=== PATIENT | female | born 1955 | race Caucasian/White ===

== ENCOUNTER 2018-09-16 14:30 | Inpatient (IN) ==
[2018-09-16] MEDS ORDERED: Bisacodyl 10 MG Supp RECTAL PRN (16:05)
[2018-09-16] MEDS: Sod Chloride 0.9% Inj 1,000 ML IV.CONT SCH (17:44)
--- NOTE | 2018-09-16 18:08 | P.HPIM ---
History of Present Illness Service: [facility] Primary Care Physician: UNKNOWN Chief Complaint: confusion History of Present Illness: This is a pleasant 63-year-old female with past medical history significant for squamous cell carcinoma, IBS, depression, anxiety disorder, anemia fibromyalgia, chronic headaches and GERD. Patient has undergone multiple procedures and surgeries for squamous cell carcinoma to her scalp since 2015. Most recently, patient underwent wide local excision of scalp squamous cell and excision of outer table skull with right ALT free flap, right thigh skin graft and right forearm vein harvesting by Dr. Edosn Adam on 08/20/18 at [facility]. Postoperatively, patient was ventilated for 48 hours. She had significant scalp edema. Her postop course was also complicated by cerebral infarction with hemiparesis and hemiplegia affecting the left side but the patient's strength has significantly returned. Patient also underwent a PEG tube placement on 08/30 to help with nutritional intake and eats modified diet orally. Patient became obtunded and imaging revealed bilateral subdural collections, EEG showed encephalopathy. She underwent a lumbar puncture August 30 with unremarkable CSF studies. Patient was admitted to [facility] for comprehensive rehabilitation on September 09, 2018. Pt. had been progressing well throughout rehab stay. On 09/15/2018 patient sensation was noted with slight dehiscence and erythema. Call was left at the surgeon's office per CIR team. On 09/16, CIR team was able to speak to PA for surgeon and discussed changes noted to flap. Surgeon did not see need to transfer pt. back to [place] and recommended to continue with rehab. Over the last 3-4 days, pt. had complained of headaches and was started on Fioricet which had initially helped. Today, pt. was noted sleepy and Fioricet was stopped. Later in the day, Patient became more lethargic and was difficult with tachycardia and hypoxia, Blood pressure remained stable. Due to observation of changes to cranial surgical sites, suspicion was for infection and possible sepsis. Septic workup was initiated, blood cultures were collected. Lactic acid was 2.3. Chest x-ray did not reveal any acute findings. CT of the head showed stable postop features of high frontoparietal craniotomy with stable region of increased density overlying the frontal high convexity and adjacent surgical clips. No intercurrent hemorrhage or interval change. There has not been any fever, no leukocytosis. Because of above changes, the decision was made to transfer patient to the main hospital. Patient is now examined, she remains obtunded, barely arouses to touch. She is on oxygen at 2 L and sats 99%, patient is hemodynamically stable. Review of systems difficult to obtain at this time. Patient is admitted for further evaluation and treatment. - Diagnosis (1) Acute metabolic encephalopathy (2) Status post craniotomy (3) Squamous cell carcinoma (4) Hemiparesis of nondominant side (5) Dysphagia (6) GERD (gastroesophageal reflux disease) (7) Impaired mobility and activities of daily living (8) Presence of surgical incision (9) Depression Inpatient Certification: I certify that the inpatient services were ordered in accordance with Medicare regulations governing the order. This includes certification that hospital inpatient services are reasonable and necessary and in the case of services not specified as inpatient-only under 42 CFR 419.22(n), that they are appropriately provided as inpatient services in accordance to with the 2-midnight benchmark under 43 CFR 412.3(e) Estimated Total Length of Stay (Days): 3 Plans for Post Hospital Care: Not yet determined Review of Systems unobtainable due to mental status PMFSH - History History Provided By: Patient, Family Member - Medical History Medical History: Medical History (Last Reviewed 09/16/18 @ 18:08 by BRIANNE Castro) Anemia Anxiety disorder Chronic headaches Depression Fibromyalgia GERD (gastroesophageal reflux disease) Irritable bowel syndrome without diarrhea Malignant neoplasm - Surgical History Surgical History: Surgical History (Last Reviewed 09/16/18 @ 18:08 by BRIANNE Castro) H/O cystoscopy History of breast surgery History of left knee surgery History of repair of rotator cuff History of sinus surgery Hx of tonsillectomy - Family History Family History: Family History (Last Reviewed 09/16/18 @ 18:08 by BRIANNE Castro) Mother Thyroid disease Breast cancer Depression Arthritis Skin cancer Hypertension Father Depression Arthritis Skin cancer Hypertension Brother Diabetes - Social History I have reviewed the patient's Social History: Yes - Tobacco History Second Hand Smoke Exposure: No Smoking Status: Former smoker Tobacco Type: Cigarettes Smoking End Date: Quit 30 years ago -patient indicates she was a "light smoker" - Alcohol History How Often Do You Have a Drink Containing Alcohol: Never - Substance Use History Substance History: No History of Abuse - Travel History History of Recent Travel: No Medications and Allergies Active Medications: Active Medications Acetaminophen (Tylenol) 650 mg PO Q4H PRN PRN Reason: Temp > 100.4 Al Hydroxide/Mg Hydroxide (Milk Of Magnesia Liq) 30 ml PO Q12H PRN PRN Reason: Mild Constipation Bisacodyl (Dulcolax Supp) 10 mg RECTAL DAILY PRN PRN Reason: SEVERE CONSITIPATION Sodium Chloride (Ns Inj) 1,000 mls @ 75 mls/hr IV.CONT .[id number] [facility] Last Admin: 09/16/18 17:44 Dose: 75 mls/hr Lactulose (Lactulose Liq) 30 ml PO DAILY PRN PRN Reason: SEVERE CONSITIPATION Ondansetron HCl (Zofran Inj) 4 mg IV.PUSH Q6H PRN PRN Reason: NAUSEA OR VOMITING Sennosides (Senokot) 17.2 mg PO Q12H PRN PRN Reason: Moderate Constipation Sodium Chloride (Ns Flush) 2 ml IV.FLUSH BID [facility] Sodium Chloride (Ns Flush) 2 ml IV.FLUSH PRN PRN PRN Reason: FLUSH AFTER USING IV ACCESS Allergies Allergy/AdvReac Type Severity Reaction Status Date / Time chlorhexidine Allergy Intermediate Tingling Verified 09/09/18 13:05 codeine Allergy Intermediate Rash, Verified 09/09/18 13:05 Generalized Home Medications Medication Instructions Recorded Confirmed Type famotidine 20 mg FEEDING TUBE BID 09/09/18 09/09/18 History heparin (porcine) 5,000 unit SUBCUT Q8H 09/09/18 09/09/18 History ondansetron 4 mg PO Q6H PRN 09/09/18 09/09/18 History Exam Vital signs: Vital Signs 09/16/18 17:55 Temperature 98.6 F Pulse Rate 93 H Respiratory Rate 18 Blood Pressure 126/83 Pulse Oximetry 98 Narrative: GENERAL: 63-year-old well-developed well-nourished female, obtunded. Withdraws to pain. SKIN: Warm and dry. +right thigh medial incision open to air. HEAD: scalp edematous with multiple incision sites, sutures in place, +skin flaps. Small area of dehiscence noted, some erythema. No drainage EYES: Pupils are 3 mm and brisk. No scleral icterus ENT: No nasal bleeding or discharge. Mucous membranes pink and moist. NECK: Trachea midline. CARDIOVASCULAR: Regular rate and rhythm. RESPIRATORY: No accessory muscle use. Clear to auscultation. Breath sounds equal bilaterally. GASTROINTESTINAL: Abdomen soft, non-tender, nondistended. +PEG tube present. MUSCULOSKELETAL: Extremities without clubbing, cyanosis, or edema. No obvious deformities. NEUROLOGICAL: Lethargic, unable to assess. Withdraws to pain. Moves right side spontaneously. PSYCHIATRIC: Unable to asses. Caprini VTE Risk Assessment Caprini VTE Risk Assessment: Moderate/High Risk (score >= 2) Caprini Risk Assessment Model: Point Value = 1 Point Value = 2 Point Value = 3 Point Value = 5 Age 41-60 Minor surgery BMI > 25 kg/m2 Swollen legs Varicose veins or History of unexplained or recurrent spontaneous Oral contraceptives or hormone replacement Sepsis (< 1 month) Serious lung disease, including pneumonia (< 1 month) Abnormal pulmonary function Acute myocardial infarction Congestive heart failure (< 1 month) History of inflammatory bowel disease Medical patient at bed rest Age 61-74 Arthroscopic surgery Major open surgery (> 45 min) Laparoscopic surgery (> 45 min) Malignancy Confined to bed (> 72 hours) Immobilizing plaster cast Central venous access Age >= 75 History of VTE Family history of VTE Factor V Leiden Prothrombin [id number] Lupus anticoagulant Anticardiolipin antibodies Elevated serum homocysteine Heparin-induced thrombocytopenia Other congenital or acquired thrombophilia Stroke (< 1 month) Elective arthroplasty Hip, pelvis, or leg fracture Acute spinal cord injury (< 1 month) Prophylaxis Regimen: Total Risk Factor Score Risk Level Prophylaxis Regimen 0-1 Low Early ambulation 2 Moderate Order ONE of the following: *Sequential Compression Device (SCD) *Heparin 5000 units SQ BID 3-4 Higher Order ONE of the following medications: *Heparin 5000 units SQ TID *Enoxaparin/Lovenox 40 mg SQ daily (WT < 150 kg, CrCl > 30 mL/min) *Enoxaparin/Lovenox 30 mg SQ daily (WT < 150 kg, CrCl > 10-29 mL/min) *Enoxaparin/Lovenox 30 mg SQ BID (WT < 150 kg, CrCl > 30 mL/min) AND/OR *Sequential Compression Device (SCD) 5 or more Highest Order ONE of the following medications: *Heparin 5000 units SQ TID (Preferred with Epidurals) *Enoxaparin/Lovenox 40 mg SQ daily (WT < 150 kg, CrCl > 30 mL/min) *Enoxaparin/Lovenox 30 mg SQ daily (WT < 150 kg, CrCl > 10-29 mL/min) *Enoxaparin/Lovenox 30 mg SQ BID (WT < 150 kg, CrCl > 30 mL/min) AND *Sequential Compression Device (SCD) Assessment and Plan - Assessment (1) Acute metabolic encephalopathy Code(s): G93.41 - Metabolic encephalopathy Status: Acute (2) Status post craniotomy Code(s): Z98.890 - Other specified postprocedural states Status: Acute (3) Squamous cell carcinoma Code(s): C44.92 - Squamous cell carcinoma of skin, unspecified Status: Chronic (4) Hemiparesis of nondominant side Code(s): G81.90 - Hemiplegia, unspecified affecting unspecified side Status: Acute (5) Dysphagia Code(s): R13.10 - Dysphagia, unspecified Status: Acute (6) GERD (gastroesophageal reflux disease) Code(s): K21.9 - Gastro-esophageal reflux disease without esophagitis Status: Chronic (7) Impaired mobility and activities of daily living Code(s): Z74.09 - Other reduced mobility Status: Acute (8) Presence of surgical incision Code(s): Z78.9 - Other specified health status Status: Acute (9) Depression Code(s): F32.9 - Major depressive disorder, single episode, unspecified Status : Chronic - Plan 63-year-old female status post wide local excision of squamous cell carcinoma of the scalp and excision outer table skull with right ALT free flap, right thigh skin graft, right forearm vein harvest 08/20/18 with postoperative course complicated by acute encephalopathy, cerebral infarction with left-sided hemiparesis, poor nutritional intake requiring PEG tube placement and subdural collections. Initially admitted to [place] for comprehensive rehab. Had acute change in mental status and was transferred to [facility]. Acute encephalopathy, etiology unclear. Possibly infection due to recent craniotomy/excision, rule out stroke, possibly due to medications (was on Fioricet for headaches) Recent hx of CVA with left hemiparesis Had episode of encephalopathy during post op period. -Continuous cardiac telemetry Neurochecks every 4 Consult neurology for evaluation CT of the head of has been completed, and no acute findings although the postop surgical changes. We will check brain MRI -check EEG We will check B12, TSH, RPR We will check a UA/UC -at this time will hold off on starting antibiotics, no fever, no leukocytosis. Recent Scalp squamous cell carcinoma with invasion into the bone, dura and sagittal sinus s/p surgical excision and craniotomy, skin graft excision and flap repair Noted with mild wound dehiscence and erythema, surgical team at [facility] has been notified. -continue to monitor wound -Patient will need to follow-up with her oncologist as outpatient for continued treatment of her squamous cell carcinoma. Per daughter, she is to have radiation when she stabilizes. Physical deconditioning Recent fall in [facility], no acute injuries. Pt. at times impulsive -Fall precautions -PT/OT to continue Headaches, was initially put on Fioricet but was stopped today due to change in mental status -for now use Tylenol as needed for headache Dysphagia Poor nutritional intake s/p PEG placement Recent barium swallow in [facility]-continued pureed and TF at HS -continue with ST -Continue on PEG tube feedings from 6 PM to 6 AM and modified oral diet. For now NPO until awake. -Aspiration precautions Anemia, mild, suspect postoperative anemia of acute blood loss -No active bleeding noted -Continue to monitor CBC as indicated GERD, chronic -continue on Pepcid DVT prophylaxis -continue Heparin sq for DVT prophylaxis. Plan of care discussed with RN. Spoke to daughter on the phone at length, questions answered in detail. Code Status: Full code Discussed Condition With: tool and die repair Planning: Back to [facility] when stable. (5) Dysphagia Qualifiers: Dysphagia type: unspecified Qualified Code(s): R13.10 - Dysphagia, unspecified (6) GERD (gastroesophageal reflux disease) Qualifiers: Esophagitis presence: esophagitis presence not specified Qualified Code(s): K21.9 - Gastro-esophageal reflux disease without esophagitis (9) Depression Qualifiers: Depression Type: unspecified Qualified Code(s): F32.9 - Major depressive disorder, single episode, unspecified
[2018-09-16 21:12] LABS: Thyroid Stimulating Hormone 0.532 uIU/mL (0.358-3.740)
[2018-09-16] MEDS: Acetaminophen 325 MG Tablet PO PRN (22:28)
[2018-09-17 04:47] LABS: Amorphous Sediment,Urine Rare /hpf; Bacteria,Urine Rare /hpf; Bilirubin,Urine Negative (Negative); Clarity,Urine Cloudy (Clear); Color,Urine Yellow (Yellw/Straw); Glucose,Urine (UA) Negative (Negative); Leukocyte Esterase,Urine Moderate (Negative); Mucus,Urine Few /lpf (Occasional); Nitrite,Urine Positive (Negative); Specific Gravity,Urine 1.015 (1.002-1.035); Squamous Epithelial Cell,Urine 1 /hpf (0-5)
[2018-09-17 07:05] LABS: Albumin 2.9 g/dL (3.4-5.0); Anion Gap 8 meq/L (5-15); Aspartate Aminotransferase 13 U/L (15-37); Blood Urea Nitrogen 11 mg/dL (7-18); Calcium 8.9 mg/dL (8.5-10.1); Carbon Dioxide 26.4 meq/L (21.0-32.0); Chloride 105 meq/L (98-107); Glomerular Filtration Rate 82 mL/min (>89); Glucose,Random 93 mg/dL (74-106); Potassium 3.8 meq/L (3.5-5.1); Sodium 139 meq/L (136-145)
[2018-09-17 07:07] LABS: Alanine Aminotransferase 23 U/L (10-53)
[2018-09-17 07:09] LABS: Alkaline Phosphatase 70 U/L (45-117); Total Protein 6.7 g/dL (6.4-8.2)
[2018-09-17] MEDS: Sod Chloride 0.9% Inj 1,000 ML IV.CONT SCH ×2 (08:19→18:18)
[2018-09-17] MEDS: Acetaminophen 325 MG Tablet PO PRN ×3 (08:19→22:49)
--- NOTE | 2018-09-17 11:47 | P.PN ---
Subjective Interval history: Follow-up acute metabolic encephalopathy September 17, 2018-patient seen and examined, alert and oriented to self and daughter. Vitals stable. Currently n.p.o. Case discussed with daughter by the bedside. EEG report pending Physical Exam Vital signs: Vital Signs 09/16/18 17:55 09/16/18 20:00 09/16/18 22:58 Temperature 98.6 F 97.2 F L Pulse Rate 93 H 101 H Respiratory Rate 18 17 18 Blood Pressure 126/83 120/75 Pulse Oximetry 98 96 09/17/18 00:00 09/17/18 04:00 09/17/18 08:00 Temperature 97.5 F L 98.6 F 97.9 F Pulse Rate 95 H 97 H 96 H Respiratory Rate 18 16 16 Blood Pressure 119/61 116/59 L 113/67 Pulse Oximetry 96 95 98 09/17/18 08:19 Temperature Pulse Rate 92 H Respiratory Rate Blood Pressure Pulse Oximetry Intake & Output 09/16/18 09/17/18 09/17/18 18:59 06:59 18:59 Intake Total 1100 / 1100 Output Total 250 / 250 Balance 850 / 850 Weight 81.193 kg Intake: IV 1100 / 1100 NS Inj 1,000 ML @ 75 mls/hr IV. 1000 / 1000 CONT .[id number] [facility] Rx#:[id number] Rocephin Inj 1,000 MG In NS Inj 100 / 100 100 ML @ 200 mls/hr IV.SIG Q24H [facility] Rx#:[id number] Output: Urine 250 / 250 Other: # Voids 2 1 # Incontinent Voids 1 Date of Last Bowel Movement 09/16/18 09/17/18 # Bowel Movements 1 Weight On Admission 81.193 kg Narrative: GENERAL: 63-year-old well-developed well-nourished female in NAD SKIN: Warm and dry. +right thigh medial incision open to air. HEAD: scalp edematous with multiple incision sites, sutures in place, +skin flaps. Small area of dehiscence noted, some erythema. No drainage EYES: Pupils are 3 mm and brisk. No scleral icterus ENT: No nasal bleeding or discharge. Mucous membranes pink and moist. NECK: Trachea midline. CARDIOVASCULAR: Regular rate and rhythm. RESPIRATORY: No accessory muscle use. Clear to auscultation. Breath sounds equal bilaterally. GASTROINTESTINAL: Abdomen soft, non-tender, nondistended. +PEG tube present. MUSCULOSKELETAL: Extremities without clubbing, cyanosis, or edema. No obvious deformities. NEUROLOGICAL: CN II-XII intact PSYCHIATRIC: Unable to asses. Results - Labs CBC & Chem 7: 09/17/18 05:57 Laboratory Results - last 24 hr 09/16/18 09/16/18 09/17/18 19:56 19:56 04:15 Sodium Potassium Chloride Carbon Dioxide Anion Gap BUN Creatinine Estimated GFR Random Glucose Lactic Acid 2.0 Calcium Total Bilirubin AST ALT Alkaline Phosphatase Total Protein Albumin Vitamin B12 1018 H TSH 0.532 Urine Color Yellow Urine Clarity Cloudy H Urine pH 6.0 Ur Specific Allgood 1.015 Urine Protein Negative Urine Glucose (UA) Negative Urine Ketones Negative Urine Occult Blood Negative Urine Nitrate Positive H Urine Bilirubin Negative Urine Urobilinogen Less than 2 Ur Leukocyte Esterase Moderate H Urine RBC 3 Urine WBC 59 H Ur Squamous Epith Cells 1 Amorphous Sediment Rare H Urine Bacteria Rare H Urine Mucus Few H Micro UA Comment Culture indicated Ur Microscopic Review Not Reportable Urine Culture Comments Culture indicated 09/17/18 05:57 Sodium 139 Potassium 3.8 Chloride 105 Carbon Dioxide 26.4 Anion Gap 8 BUN 11 Creatinine 0.72 Estimated GFR 82 L Random Glucose 93 Lactic Acid Calcium 8.9 Total Bilirubin 0.3 AST 13 L ALT 23 Alkaline Phosphatase 70 Total Protein 6.7 D Albumin 2.9 L Vitamin B12 TSH Urine Color Urine Clarity Urine pH Ur Specific Allgood Urine Protein Urine Glucose (UA) Urine Ketones Urine Occult Blood Urine Nitrate Urine Bilirubin Urine Urobilinogen Ur Leukocyte Esterase Urine RBC Urine WBC Ur Squamous Epith Cells Amorphous Sediment Urine Bacteria Urine Mucus Micro UA Comment Ur Microscopic Review Urine Culture Comments Assessment and Plan - Assessment (1) Acute metabolic encephalopathy Code(s): G93.41 - Metabolic encephalopathy Status: Acute (2) Status post craniotomy Code(s): Z98.890 - Other specified postprocedural states Status: Acute (3) Squamous cell carcinoma Code(s): C44.92 - Squamous cell carcinoma of skin, unspecified Status: Chronic (4) Hemiparesis of nondominant side Code(s): G81.90 - Hemiplegia, unspecified affecting unspecified side Status: Acute (5) Dysphagia Code(s): R13.10 - Dysphagia, unspecified Status: Acute (6) GERD (gastroesophageal reflux disease) Code(s): K21.9 - Gastro-esophageal reflux disease without esophagitis Status: Chronic (7) Impaired mobility and activities of daily living Code(s): Z74.09 - Other reduced mobility Status: Acute (8) Presence of surgical incision Code(s): Z78.9 - Other specified health status Status: Acute (9) Depression Code(s): F32.9 - Major depressive disorder, single episode, unspecified Status : Chronic - Plan 63-year-old female with Acute metabolic encephalopathy, etiology unclear. Possibly infection due to recent craniotomy/excision, rule out stroke, possibly due to medications (was on Fioricet for headaches) ----mentation is improving Recent hx of CVA with left hemiparesis Had episode of encephalopathy during post op period. -Continuous cardiac telemetry Neurochecks every 4 Consult neurology for evaluation CT of the head of has been completed, and no acute findings although the postop surgical changes. check brain MRI -EEG report pending -Treat for UTI UTI Currently on Rocephin pending urine culture report Recent Scalp squamous cell carcinoma with invasion into the bone, dura and sagittal sinus s/p surgical excision and craniotomy, skin graft excision and flap repair Noted with mild wound dehiscence and erythema, surgical team at [place] has been notified. -continue to monitor wound -Patient will need to follow-up with her oncologist as outpatient for continued treatment of her squamous cell carcinoma. Per daughter, she is to have radiation when she stabilizes. Physical deconditioning Recent fall in [place], no acute injuries. Pt. at times impulsive -Fall precautions -PT/OT to continue Headaches, was initially put on Fioricet but was stopped 09/16/18 due to change in mental status -for now use Tylenol as needed for headache Dysphagia Poor nutritional intake s/p PEG placement Recent barium swallow in [facility]-continued pureed and TF at HS, however will check swallow eval today September 17, 2018 -continue with ST -Continue on PEG tube feedings from 6 PM to 6 AM and modified oral diet. For now NPO until swallow eval check today September 17, 2018 -Aspiration precautions Anemia, mild, suspect postoperative anemia of acute blood loss -No active bleeding noted -Continue to monitor CBC as indicated GERD, chronic -continue on Pepcid DVT prophylaxis -continue Heparin sq for DVT prophylaxis. (5) Dysphagia Qualifiers: Dysphagia type: unspecified Qualified Code(s): R13.10 - Dysphagia, unspecified (6) GERD (gastroesophageal reflux disease) Qualifiers: Esophagitis presence: esophagitis presence not specified Qualified Code(s): K21.9 - Gastro-esophageal reflux disease without esophagitis (9) Depression Qualifiers: Depression Type: unspecified Qualified Code(s): F32.9 - Major depressive disorder, single episode, unspecified
--- NOTE | 2018-09-17 12:02 | MB ---
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 She had some chemo about a year ago or so and surgery with a muscle flap 08/20/2018 at the [facility]. Had some lethargy afterwards, 2 days good, 2 days bad, and then came over to [place] about a week ago where she seemed to be doing fine until yesterday. She was lethargic and brought over here. Daughter tells me postop she has a little bit of left-sided weakness, which resolved. The daughter tells me she had a little bit of trouble possibly with language or getting her words out a little since the operation, but it seems to be improving. REVIEW OF SYSTEMS: According to the daughter, no history of hypertension; diabetes; hypercholesterolemia; [place]; CABG; cardiac arrhythmia; renal, hepatic, or pulmonary disease; thyroid disease; lupus; ulcer; cancer; seizure; stroke; Afib. She has had some headaches and since her surgery and a little bit before that some concentration problems. SOCIAL HISTORY: She is a smoker, not a drinker, lives by herself. FAMILY HISTORY: No cancer, seizure, or stroke. MEDICATIONS: She is on some Subcutaneous heparin, famotidine, Tylenol. She was on some Fioricet, which her daughter thinks maybe was causing some lethargy. Here, she is on ceftriaxone. No other medication. PHYSICAL EXAMINATION: VITAL SIGNS: Afebrile, 96, 16, 113/67. NECK: There are no carotid bruits. HEART: Regular rate and rhythm. I did not detect a murmur. NEUROLOGIC: Pupils are equal. Visual casey are full. Disc is sharp on the right. Extraocular movements were intact. She had a slight strabismus which is old. Face is symmetric with normal sensation. Tongue was midline. No drift. There is a little bit of asterixis on the left hand, but she had normal strength in upper and lower extremities bilaterally. DTRs are normal in the upper extremity, slightly hyperreflexive in the left knee jerk compared to the right. Toes downgoing bilaterally. No ankle clonus. Pinprick was intact throughout. She is awake and alert, a little slow to answer. Could name, repeat, and calculate. She knew the month, but not the year. She followed commands overall well. She remembered 3 out of 3 words at 2 minutes. SKIN: She has a healing graft on the scalp. DIAGNOSTIC DATA: Labs reveal her BMP was normal, as was a calcium, lactic acid, LFTs, and total protein. Albumin is 2.9. B12 and thyroid are normal. UA: 59 white cells, moderate leukocyte esterase, positive nitrites. Chest x-ray negative. CT scan of the brain, postop changes, no change from 09/10 film she had. Increased density over the left frontal high convexities with surgical clips, post-surgical. On review of the films, the white matter is quite prominent for somebody her age and the ventricles are bit small. I wonder if she could have some diffuse venous congestion with a sagittal sinus thrombosis. It is hard to tell if there is any high frontal lobe damage with the postop changes. No infarcts are noted. ASSESSMENT AND PLAN: She overall looks intact neurologically. A little bit of hyperreflexia and a little slight asterixis on the left side apparently and probably improving, but she had some weakness there postoperatively. She had sagittal sinus thrombosis and tumor invasion possibly into the sagittal sinus. The daughter is not entirely sure and certainly at increased risk for venous infarcts. It is unclear to me if the white matter changes are normal on her on the CT. I would like to get an MRI if possible. EEG is being performed. She did have a urinary tract infection. She seems certainly improved. I will hold off on any sedating medicines. I suspect, however, she has been doing fine for a week, probably this is more possibly the Fioricet and the urinary tract infection that was causing her mental status change. MD RAFA Kaur/jessica , 10:34 AM , 10:45 AM
--- NOTE | 2018-09-17 15:03 | P.DIET ---
Nutritional Evaluation Type of nutrition evaluation: initial Nutrition consult regarding: Tube Feeding Screening comments: Transferred from [facility] Objective - Diagnosis Possible Sepsis - Objective % IBW: 119 (IBW = 150#) Body Weight Used for Calculations: Actual (81.2 kg) Energy Needs - Lower Range (kCal/kg): 25 Energy Needs - Upper Range (kCal/kg): 30 Lower Limit kCal/kg (kCals): 2,030 Upper Limit kCal/kg (kCals): 2,436 Lower Limit Protein Factor (Grams per Kg): 1.0 Upper Limit Protein Factor (Grams per Kg): 1.5 Lower Protein Needs (Protein): 81 Upper Protein Needs (Protein): 122 Dietitian Reviewed in Medical Record: Current diet, Curent medications, Intake & Output, Labs, Medical history, Tube feeding Diet Order: NPO Assessment Assessment: Pt admitted from [facility] with possible sepsis. She was on 2 gm Na pureed diet with Glucena Shakes bid and TF of Jevity 1.5 @ 65 mls/hr frpm 6pm-6am ( 1170 kcals/ 50 gms protein) but she is now NPO and TF on hold. ST swallow eval pending. RD will follow and adjust recommendations when more info is available. Recommendations: Diet per ST TF as needed determined by diet and po intake. RD following Dietitian to Monitor: Lab values, Intake & Output, Tube feeding tolerance, Weight change, PO Intake, Diet advancement, Swallow recommendations, Medical course
--- NOTE | 2018-09-17 19:02 | MG ---
cc: Arik Harden MD EEG NUMBER: [id number] A 63-year old woman with craniotomy, squamous cell carcinoma. Recording shows a slight breach rhythm over the right central head region at 9 Hz, 60 microvolt diffuse rhythm is seen phase, phase reversing delta type waves over C4 electrode are also noted and EPOCH is 20 in the same areas the breach rhythm. Occasional diffuse delta slowing is noted. No epileptiform or seizure activity is seen. Photic stimulation is performed without significant posterior driving. IMPRESSION: Breach rhythm over the right central head region. Some diffuse slowing. No seizure activity is noted. Most of the background appeared normal. Arik Harden MD DJM/ct , 06:37 PM , 06:42 PM
[2018-09-18] MEDS: Acetaminophen 325 MG Tablet PO PRN ×4 (06:22→21:43)
--- NOTE | 2018-09-18 10:16 | P.PNIM ---
Subjective Interval history: Patient seen and examined this morning. Afebrile vital signs stable. Lying and restricted bed. Still mildly confused. Denies any pain or issues at this time. Physical Exam Vital signs: Vital Signs 09/17/18 12:00 09/17/18 16:00 09/17/18 20:00 Temperature 99.2 F 97 F L 97.9 F Pulse Rate 92 H 100 H 88 Respiratory Rate 18 20 18 Blood Pressure 125/81 129/77 97/54 L Pulse Oximetry 94 L 99 97 09/18/18 00:00 09/18/18 04:00 09/18/18 05:19 Temperature 98 F 97.2 F L Pulse Rate 86 86 87 Respiratory Rate 18 18 Blood Pressure 105/62 119/59 L Pulse Oximetry 94 L 96 Intake & Output 09/17/18 09/18/18 09/18/18 18:59 06:59 18:59 Intake Total 2000 Output Total 250 / 250 Balance 1751 / 1751 Weight 81.1 kg Intake: IV 1701 / 1701 NS Inj 1,000 ML @ 75 mls/hr IV. 1601 / 1601 CONT .[id number] [facility] Rx#:[id number] Rocephin Inj 1,000 MG In NS Inj 100 / 100 100 ML @ 200 mls/hr IV.SIG Q24H [facility] Rx#:[id number] Water Bolus Amount 300 / 300 Output: Urine 250 / 250 Other: # Voids 5 3 # Incontinent Voids 1 Date of Last Bowel Movement 09/17/18 # Bowel Movements 2 1 Narrative: GENERAL: 63-year-old well-developed well-nourished female in NAD SKIN: Warm and dry. +right thigh medial incision open to air. HEAD: scalp edematous with multiple incision sites, sutures in place, +skin flaps. Small area of dehiscence noted, some erythema. No drainage EYES: Pupils are 3 mm and brisk. No scleral icterus ENT: No nasal bleeding or discharge. Mucous membranes pink and moist. NECK: Trachea midline. CARDIOVASCULAR: Regular rate and rhythm. RESPIRATORY: No accessory muscle use. Clear to auscultation. Breath sounds equal bilaterally. GASTROINTESTINAL: Abdomen soft, non-tender, nondistended. +PEG tube present. MUSCULOSKELETAL: Extremities without clubbing, cyanosis, or edema. No obvious deformities. NEUROLOGICAL: CN II-XII intact PSYCHIATRIC: Unable to asses. Results - Labs CBC & Chem 7: 09/17/18 05:57 Laboratory Results - last 24 hr 09/16/18 09/17/18 19:56 04:15 Urine Color Yellow Urine Clarity Cloudy H Urine pH 6.0 Ur Specific Murphy 1.015 Urine Protein Negative Urine Glucose (UA) Negative Urine Ketones Negative Urine Occult Blood Negative Urine Nitrate Positive H Urine Bilirubin Negative Urine Urobilinogen Less than 2 Ur Leukocyte Esterase Moderate H Urine RBC 3 Urine WBC 59 H Ur Squamous Epith Cells 1 Amorphous Sediment Rare H Urine Bacteria Rare H Urine Mucus Few H Micro UA Comment Culture indicated Urine Culture Comments Culture indicated RPR Nonreactive Microbiology 09/17/18 04:15 Clean Catch Urine Urine Culture - Preliminary gram negative rods Assessment and Plan - Assessment (1) Acute metabolic encephalopathy Code(s): G93.41 - Metabolic encephalopathy Status: Acute (2) Status post craniotomy Code(s): Z98.890 - Other specified postprocedural states Status: Acute (3) Squamous cell carcinoma Code(s): C44.92 - Squamous cell carcinoma of skin, unspecified Status: Chronic (4) Hemiparesis of nondominant side Code(s): G81.90 - Hemiplegia, unspecified affecting unspecified side Status: Acute (5) Dysphagia Code(s): R13.10 - Dysphagia, unspecified Status: Acute (6) GERD (gastroesophageal reflux disease) Code(s): K21.9 - Gastro-esophageal reflux disease without esophagitis Status: Chronic (7) Impaired mobility and activities of daily living Code(s): Z74.09 - Other reduced mobility Status: Acute (8) Presence of surgical incision Code(s): Z78.9 - Other specified health status Status: Acute (9) Depression Code(s): F32.9 - Major depressive disorder, single episode, unspecified Status : Chronic - Plan 63-year-old female with Acute metabolic encephalopathy, etiology unclear. Possibly infection due to recent craniotomy/excision, rule out stroke, possibly due to medications (was on Fioricet for headaches) ----mentation is improving Recent hx of CVA with left hemiparesis Had episode of encephalopathy during post op period. -Continuous cardiac telemetry Neurochecks every 4 Consult neurology for evaluation CT of the head of has been completed, and no acute findings although the postop surgical changes. check brain MRI -Treat for UTI UTI Currently on Rocephin pending urine culture report Recent Scalp squamous cell carcinoma with invasion into the bone, dura and sagittal sinus s/p surgical excision and craniotomy, skin graft excision and flap repair Noted with mild wound dehiscence and erythema, surgical team at [facility] has been notified. -continue to monitor wound -Patient will need to follow-up with her oncologist as outpatient for continued treatment of her squamous cell carcinoma. Per daughter, she is to have radiation when she stabilizes. Physical deconditioning Recent fall in [facility], no acute injuries. Pt. at times impulsive -Fall precautions -PT/OT to continue Headaches, was initially put on Fioricet but was stopped 09/16/18 due to change in mental status -for now use Tylenol as needed for headache Dysphagia Poor nutritional intake s/p PEG placement Recent barium swallow in [facility]-continued pureed and TF at , however will check swallow eval today September 17, 2018 -continue with ST -Continue on PEG tube feedings from 6 PM to 6 AM and modified oral diet. For now NPO until swallow eval check today September 17, 2018 -Aspiration precautions Anemia, mild, suspect postoperative anemia of acute blood loss -No active bleeding noted -Continue to monitor CBC as indicated GERD, chronic -continue on Pepcid DVT prophylaxis -continue Heparin sq for DVT prophylaxis. Code Status: Full code Discharge Planning: Pending further workup and clearance by specialist (5) Dysphagia Qualifiers: Qualified Code(s): R13.10 - Dysphagia, unspecified (6) GERD (gastroesophageal reflux disease) Qualifiers: Qualified Code(s): K21.9 - Gastro-esophageal reflux disease without esophagitis (9) Depression Qualifiers: Qualified Code(s): F32.9 - Major depressive disorder, single episode, unspecified
--- NOTE | 2018-09-18 11:11 | P.PNNEU ---
Subjective Active Medications: Active Medications Acetaminophen (Tylenol) 650 mg PO Q4H PRN PRN Reason: Temp > 100.4/pain 1-10 Last Admin: 09/18/18 10:53 Dose: 650 mg Al Hydroxide/Mg Hydroxide (Milk Of Magnesia Liq) 30 ml PO Q12H PRN PRN Reason: Mild Constipation Bisacodyl (Dulcolax Supp) 10 mg RECTAL DAILY PRN PRN Reason: SEVERE CONSITIPATION Sodium Chloride (Ns Inj) 1,000 mls @ 75 mls/hr IV.CONT .[id number] [facility] Last Infusion: 09/18/18 10:44 Dose: Infused Ceftriaxone Sodium 1,000 mg/ (Sodium Chloride) 100 mls @ 200 mls/hr IV.SIG Q24H [facility] Last Infusion: 09/18/18 10:45 Dose: Infused Lactulose (Lactulose Liq) 30 ml PO DAILY PRN PRN Reason: SEVERE CONSITIPATION Neomycin/Polymyxin/Bacitracin (Neosporin Oint) 1 applicatio TOPICAL TID [facility] Last Admin: 09/18/18 08:59 Dose: 1 applicatio Ondansetron HCl (Zofran Inj) 4 mg IV.PUSH Q6H PRN PRN Reason: NAUSEA OR VOMITING Sennosides (Senokot) 17.2 mg PO Q12H PRN PRN Reason: Moderate Constipation Sodium Chloride (Ns Flush) 2 ml IV.FLUSH BID [facility] Last Admin: 09/18/18 08:59 Dose: Not Given Sodium Chloride (Ns Flush) 2 ml IV.FLUSH PRN PRN PRN Reason: FLUSH AFTER USING IV ACCESS Allergies/Adverse Reactions: Allergies Allergy/AdvReac Type Severity Reaction Status Date / Time chlorhexidine Allergy Intermediate Tingling Verified 09/09/18 13:05 codeine Allergy Intermediate Rash, Verified 09/09/18 13:05 Generalized Physical Exam Vital signs: Vital Signs 09/17/18 12:00 09/17/18 16:00 09/17/18 20:00 Temperature 99.2 F 97 F L 97.9 F Pulse Rate 92 H 100 H 88 Respiratory Rate 18 20 18 Blood Pressure 125/81 129/77 97/54 L Pulse Oximetry 94 L 99 97 09/18/18 00:00 09/18/18 04:00 09/18/18 05:19 Temperature 98 F 97.2 F L Pulse Rate 86 86 87 Respiratory Rate 18 18 Blood Pressure 105/62 119/59 L Pulse Oximetry 94 L 96 09/18/18 08:00 Temperature 97.8 F Pulse Rate 88 Respiratory Rate 20 Blood Pressure 112/63 Pulse Oximetry 96 Intake & Output 09/17/18 09/18/18 09/18/18 18:59 06:59 18:59 Intake Total 2000 1100 / 1100 Output Total 250 / 250 Balance 1751 / 1751 1100 / 1100 Weight 81.1 kg Intake: IV 1701 / 1701 1100 / 1100 NS Inj 1,000 ML @ 75 mls/hr IV. 1601 / 1601 1000 / 1000 CONT .[id number] [facility] Rx#:[id number] Rocephin Inj 1,000 MG In NS Inj 100 / 100 100 / 100 100 ML @ 200 mls/hr IV.SIG Q24H [facility] Rx#:[id number] Water Bolus Amount 300 / 300 Output: Urine 250 / 250 Other: # Voids 5 3 # Incontinent Voids 1 Date of Last Bowel Movement 09/17/18 # Bowel Movements 2 1 Narrative: [facility] not yr but knows month vff face sym 5/ t/o nl speech Objective Laboratory Results - last 24 hr 09/16/18 09/17/18 19:56 04:15 Urine Color Yellow Urine Clarity Cloudy H Urine pH 6.0 Ur Specific Rickman 1.015 Urine Protein Negative Urine Glucose (UA) Negative Urine Ketones Negative Urine Occult Blood Negative Urine Nitrate Positive H Urine Bilirubin Negative Urine Urobilinogen Less than 2 Ur Leukocyte Esterase Moderate H Urine RBC 3 Urine WBC 59 H Ur Squamous Epith Cells 1 Amorphous Sediment Rare H Urine Bacteria Rare H Urine Mucus Few H Micro UA Comment Culture indicated Urine Culture Comments Culture indicated RPR Nonreactive Microbiology 09/17/18 04:15 Urine Culture - Preliminary Clean Catch Urine gram negative rods Review/Management - Review/Management Plan: im[p eeg neg afeb stable exam i would like to get mri she had mri at [facility] post op so should be ok if mri/a ok could dc to rehab by me
[2018-09-18] MEDS: Sod Chloride 0.9% Inj 1,000 ML IV.CONT SCH ×2 (11:47→21:44)
[2018-09-19] MEDS: Acetaminophen 325 MG Tablet PO PRN ×3 (03:00→17:09)
[2018-09-19 07:58] LABS: Hematocrit 29.7 % (35.0-46.0); Hemoglobin 9.6 gm/dL (11.6-15.3); Mean Corpuscular HGB Conc 32.2 % (32.0-36.0); Mean Corpuscular Hemoglobin 25.4 pg (27.0-34.0); Mean Platelet Volume 7.6 fL (7.0-11.0); Platelet Count 229 th/mm3 (150-450); Red Blood Count 3.76 mil/mm3 (4.00-5.30); Red Cell Distribution Width 17.4 % (11.6-17.2); White Blood Count 5.8 th/mm3 (4.0-11.0)
[2018-09-19 08:21] LABS: Anion Gap 5 meq/L (5-15); Aspartate Aminotransferase 16 U/L (15-37); Blood Urea Nitrogen 9 mg/dL (7-18); Calcium 7.9 mg/dL (8.5-10.1); Carbon Dioxide 29.5 meq/L (21.0-32.0); Chloride 105 meq/L (98-107); Glomerular Filtration Rate Greater Than 89 mL/min (>89); Glucose,Random 114 mg/dL (74-106); Potassium 3.7 meq/L (3.5-5.1); Sodium 139 meq/L (136-145)
[2018-09-19 08:24] LABS: Alanine Aminotransferase 23 U/L (10-53); Alkaline Phosphatase 72 U/L (45-117); Total Protein 6.7 g/dL (6.4-8.2)
--- NOTE | 2018-09-19 10:03 | P.PNNEU ---
Subjective Active Medications: Active Medications Acetaminophen (Tylenol) 650 mg PO Q4H PRN PRN Reason: Temp > 100.4/pain 1-10 Last Admin: 09/19/18 08:26 Dose: 650 mg Al Hydroxide/Mg Hydroxide (Milk Of Magnesia Liq) 30 ml PO Q12H PRN PRN Reason: Mild Constipation Bisacodyl (Dulcolax Supp) 10 mg RECTAL DAILY PRN PRN Reason: SEVERE CONSITIPATION Sodium Chloride (Ns Inj) 1,000 mls @ 75 mls/hr IV.CONT .[id number] [facility] Last Admin: 09/18/18 21:44 Dose: 75 mls/hr Ceftriaxone Sodium 1,000 mg/ (Sodium Chloride) 100 mls @ 200 mls/hr IV.SIG Q24H [facility] Last Infusion: 09/18/18 10:45 Dose: Infused Lactulose (Lactulose Liq) 30 ml PO DAILY PRN PRN Reason: SEVERE CONSITIPATION Neomycin/Polymyxin/Bacitracin (Neosporin Oint) 1 applicatio TOPICAL TID [facility] Last Admin: 09/19/18 08:30 Dose: 1 applicatio Ondansetron HCl (Zofran Inj) 4 mg IV.PUSH Q6H PRN PRN Reason: NAUSEA OR VOMITING Sennosides (Senokot) 17.2 mg PO Q12H PRN PRN Reason: Moderate Constipation Sodium Chloride (Ns Flush) 2 ml IV.FLUSH BID [facility] Last Admin: 09/19/18 08:30 Dose: Not Given Sodium Chloride (Ns Flush) 2 ml IV.FLUSH PRN PRN PRN Reason: FLUSH AFTER USING IV ACCESS Allergies/Adverse Reactions: Allergies Allergy/AdvReac Type Severity Reaction Status Date / Time chlorhexidine Allergy Intermediate Tingling Verified 09/09/18 13:05 codeine Allergy Intermediate Rash, Verified 09/09/18 13:05 Generalized Physical Exam Vital signs: Vital Signs 09/18/18 12:00 09/18/18 16:00 09/18/18 20:00 Temperature 97.7 F 97.9 F 97.7 F Pulse Rate 95 H 92 H 82 Respiratory Rate 20 20 18 Blood Pressure 123/71 120/71 122/78 Pulse Oximetry 93 L 92 L 96 09/19/18 00:00 09/19/18 04:00 09/19/18 08:00 Temperature 98.1 F 97.1 F L 97.8 F Pulse Rate 84 82 87 Respiratory Rate 18 18 19 Blood Pressure 102/55 L 109/60 111/70 Pulse Oximetry 94 L 97 95 Intake & Output 09/18/18 09/19/18 09/19/18 18:59 06:59 18:59 Intake Total 1100 / 1100 1710 / 1710 Balance 1100 / 1100 1710 / 1710 Intake: IV 1100 / 1100 1000 / 1000 NS Inj 1,000 ML @ 75 mls/hr IV. 1000 / 1000 1000 / 1000 CONT .[id number] [facility] Rx#:[id number] Rocephin Inj 1,000 MG In NS Inj 100 / 100 100 ML @ 200 mls/hr IV.SIG Q24H [facility] Rx#:[id number] Oral 0 / 0 Tube Feeding 710 / 710 Other: # Voids 4 7 # Bowel Movements 0 Narrative: awake alert moving all well speech nl r ear no active blood externally looks ok? some dried blood in their Objective Laboratory Results - last 24 hr 09/19/18 09/19/18 06:41 06:41 WBC 5.8 RBC 3.76 L Hgb 9.6 L Hct 29.7 L MCV 79.0 L MCH 25.4 L MCHC 32.2 RDW 17.4 H Plt Count 229 MPV 7.6 Sodium 139 Potassium 3.7 Chloride 105 Carbon Dioxide 29.5 Anion Gap 5 BUN 9 Creatinine 0.57 Estimated GFR Greater than 89 Random Glucose 114 H Calcium 7.9 L Total Bilirubin 0.2 AST 16 ALT 23 Alkaline Phosphatase 72 Total Protein 6.7 Albumin 3.0 L Microbiology 09/17/18 04:15 Urine Culture - Preliminary Clean Catch Urine gram negative rods Review/Management - Review/Management Plan: im[p eeg neg afeb stable exam i would like to get mri she had mri at [place] post op so should be ok if mri/a ok could dc to rehab by pr 09/19/18 stable overnoc she c/o r ear ache med team plz look into ear with otoscope today mri still not done due to need hardware info from [place] acc to mri this apparently is in progress and i asked nursing to call [facility] again today
--- NOTE | 2018-09-19 11:40 | P.DS ---
DS: Providers Date of admission: 09/16/18 16:48 Primary care physician: UNKNOWN Consults: 09/16/18 17:21 Consult to Neurology Routine Consulting Provider: Arik Becerra Reason for Consultation: acute change in mental status, recent stroke Notified:: Service Spoke with:: Natalie Date Notified:: 09/16/18 Time Notified:: 17:27 Ordering Provider: ROCKY Brief History from admission: This is a pleasant 63-year-old female with past medical history significant for squamous cell carcinoma, IBS, depression, anxiety disorder, anemia fibromyalgia, chronic headaches and GERD. Patient has undergone multiple procedures and surgeries for squamous cell carcinoma to her scalp since 2016. Most recently, patient underwent wide local excision of scalp squamous cell and excision of outer table skull with right ALT free flap, right thigh skin graft and right forearm vein harvesting by Dr. Edson Adam on 08/20/18 at [facility]. Postoperatively, patient was ventilated for 48 hours. She had significant scalp edema. Her postop course was also complicated by cerebral infarction with hemiparesis and hemiplegia affecting the left side but the patient's strength has significantly returned. Patient also underwent a PEG tube placement on 08/30 to help with nutritional intake and eats modified diet orally. Patient became obtunded and imaging revealed bilateral subdural collections, EEG showed encephalopathy. She underwent a lumbar puncture August 30 with unremarkable CSF studies. Patient was admitted to [facility] for comprehensive rehabilitation on September 09, 2018. Pt. had been progressing well throughout rehab stay. On 09/15/2018 patient sensation was noted with slight dehiscence and erythema. Call was left at the surgeon's office per CIR team. On 09/16, CIR team was able to speak to PA for surgeon and discussed changes noted to flap. Surgeon did not see need to transfer pt. back to [place] and recommended to continue with rehab. Over the last 3-4 days, pt. had complained of headaches and was started on Fioricet which had initially helped. Today, pt. was noted sleepy and Fioricet was stopped. Later in the day, Patient became more lethargic and was difficult with tachycardia and hypoxia, Blood pressure remained stable. Due to observation of changes to cranial surgical sites, suspicion was for infection and possible sepsis. Septic workup was initiated, blood cultures were collected. Lactic acid was 2.3. Chest x-ray did not reveal any acute findings. CT of the head showed stable postop features of high frontoparietal craniotomy with stable region of increased density overlying the frontal high convexity and adjacent surgical clips. No intercurrent hemorrhage or interval change. There has not been any fever, no leukocytosis. Because of above changes, the decision was made to transfer patient to the main hospital. Patient is now examined, she remains obtunded, barely arouses to touch. She is on oxygen at 2 L and sats 99% , patient is hemodynamically stable. Review of systems difficult to obtain at this time. Patient is admitted for further evaluation and treatment. DS: Diagnosis Discharge Diagnosis (1) Acute metabolic encephalopathy: Status: Acute (2) Status post craniotomy: Status: Acute (3) Squamous cell carcinoma: Status: Chronic (4) Hemiparesis of nondominant side: Status: Acute (5) Dysphagia: Status: Acute (6) GERD (gastroesophageal reflux disease): Status: Chronic (7) Impaired mobility and activities of daily living: Status: Acute (8) Presence of surgical incision: Status: Acute (9) Depression: Status: Chronic DS: Summary 63-year-old female who presented 3 days ago with altered mental status that seems to be secondary to urinary tract infection. She has an extensive history of invasive squamous cell carcinoma that involved her scalp and invaded into the brain cavity but not directly affecting the brain. Surgery removed the bulk of this tumor but because neurological deficits which she is recovering from. She has a small area that remains but must regain strength prior to undergoing radiation therapy to her occipital lobe. During this hospitalization , following Rocephin dosing she returned to her baseline. Swallow eval shows tolerance of pured diet with thin liquids. Her baseline diet is soft mechanical. Both she and her daughter are interested in resuming her therapy at [facility]. From my standpoint she is cleared to go there today. UTI Patient has had 3 doses of Rocephin, will continue 3 more days for thorough treatment Right otalgia Patient complains of right ear pain, infectious causes should be covered by Rocephin Adding Debrox to cover for wax caused pain Invasive squamous cell carcinoma of scalp Status post resection of bulk of tumor of her central scalp, skin grafts placed Small residual area overlying occipital lobe, will undergo radiation once she feels more strength back DVT prophylaxis Patient had some bleeding at the site of her skin graft last night We will reduce the heparin from every 8 hours to every 12 hours Time Spent with Patient Total time spent providing and/or coordinating discharge services: Quality: VTE Deep Vein Thrombosis/Pulmonary Embolism Present on Admission: No Results Labs on day of discharge: Labs from last 24 hours 09/19/18 09/19/18 06:41 06:41 WBC 5.8 RBC 3.76 L Hgb 9.6 L Hct 29.7 L MCV 79.0 L MCH 25.4 L MCHC 32.2 RDW 17.4 H Plt Count 229 MPV 7.6 Sodium 139 Potassium 3.7 Chloride 105 Carbon Dioxide 29.5 Anion Gap 5 BUN 9 Creatinine 0.57 Estimated GFR Greater than 89 Random Glucose 114 H Calcium 7.9 L Total Bilirubin 0.2 AST 16 ALT 23 Alkaline Phosphatase 72 Total Protein 6.7 Albumin 3.0 L Discharge Plan Discharge Disposition Patient Disposition: 62 Rehab Inpatient Discharge Condition Condition: Stable Discharge Order Discharge Orders: Discharge Order (Routine); Ordered 09/19/18 Ordered By: Osmin Baig Discharge Details Anticipated Discharge Date: 09/19/18 Discharge Comment: Discharge to [facility] when bed available Physicians Team Primary Care Provider: MONTEZ, Attending Provider: Osmin Baig Other Providers: Arik Becerra Rxs /Orders / Referrals /Forms Prescriptions: New ceftriaxone 1 gram recon soln 1 g IV.SIG Q24H 3 Days Qty: 3 RF: 0 Continue famotidine 20 mg Tablet 20 mg Feeding Tube BID RF: 0 ondansetron 4 mg Tablet,Disintegrating 4 mg PO Q6H PRN (Reason: Nausea And Vomiting) RF: 0 acetaminophen 325 mg Tablet 650 mg PO Q4H PRN (Reason: Pain 1-10) Qty: 0 RF: 0 [id number] [Triple Antibiotic] 3.5mg-400 unit- 5,000 unit/ gram Ointment 1 applicatio Topical BID Qty: 0 RF: 0 magnesium hydroxide [Milk of Magnesia] 400 mg/5 mL Suspension 30 ml PO DAILY PRN (Reason: Mild Constipation) Qty: 0 RF: 0 water for injection, sterile Parenteral Solution 150 ml G-Tube Q6HR Qty: 0 RF: 0 No Action senna leaf extract [senna] 176 mg/5 mL Syrup 8.8 mg G-Tube DAILY Qty: 0 RF: 0 Referrals: UNKNOWN, [Primary Care Provider] - See Instructions Discharge Interventions Interventions: Discharge Planning - Case Management Last Done: 09/17/18 14:25
[2018-09-19] MEDS: Carbamide Peroxide 6.5% Otic Drops 15 ML Bottle RIGHT EAR SCH ×2 (15:31→20:07)
[2018-09-19] MEDS: Sod Chloride 0.9% Inj 1,000 ML IV.CONT SCH (15:31)
[2018-09-20] MEDS: Sod Chloride 0.9% Inj 1,000 ML IV.CONT SCH ×2 (00:27→17:36)
[2018-09-20] MEDS: Acetaminophen 325 MG Tablet PO PRN ×5 (00:45→17:35)
[2018-09-20] MEDS: Carbamide Peroxide 6.5% Otic Drops 15 ML Bottle RIGHT EAR SCH ×2 (08:17→22:27)
--- NOTE | 2018-09-20 10:45 | P.DIET ---
Nutritional Evaluation Type of nutrition evaluation: follow-up Nutrition consult regarding: Tube Feeding Screening comments: Transferred from [facility] Subjective Subjective Comments: Ate 75% of breakfast this am Objective - Diagnosis Possible Sepsis - Objective % IBW: 119 (IBW = 150#) Body Weight Used for Calculations: Actual (81.2 kg) Energy Needs - Lower Range (kCal/kg): 25 Energy Needs - Upper Range (kCal/kg): 30 Lower Limit kCal/kg (kCals): 2,030 Upper Limit kCal/kg (kCals): 2,436 Lower Limit Protein Factor (Grams per Kg): 1.0 Upper Limit Protein Factor (Grams per Kg): 1.5 Lower Protein Needs (Protein): 81 Upper Protein Needs (Protein): 122 Dietitian Reviewed in Medical Record: Current diet, Curent medications, Intake & Output, Labs, Medical history, Tube feeding Diet Order: Pureed Speech Therapy Recommendations: Yes (pureed 09/18) Assessment Assessment: Pt admitted from [facility] with possible sepsis. She was on 2 gm Na pureed diet with Glucerna Shakes bid and TF of Jevity 1.5 @ 65 mls/hr from 6pm-6am ( 1170 kcals/ 50 gms protein) and this is now what the pt is receiving here without the sodium restriction. Pt to be d/c'ed back to [facility] possibly as soon as today. RD will follow. Recommendations: Diet per ST Night TFing as ordered. RD following Dietitian to Monitor: Lab values, Intake & Output, Tube feeding tolerance, Weight change, PO Intake, Diet advancement, Swallow recommendations, Medical course
--- NOTE | 2018-09-20 12:37 | P.PNIM ---
Subjective Interval history: 62-year-old female discharged yesterday, remains here awaiting bed at [facility]. Her otalgia was addressed yesterday, Debrox given, ear pain is now resolved. Physical Exam Vital signs: Last Vital Signs Temp 98.2 F 09/20/18 08:00 Pulse 85 09/20/18 08:00 Resp 19 09/20/18 08:00 BP 113/62 09/20/18 08:00 Pulse Ox 97 09/20/18 08:00 Intake & Output 09/18/18 09/19/18 09/20/18 09/21/18 06:59 06:59 06:59 06:59 Intake Total 3057 / 3057 2810 / 2810 2780 / 2780 100 / 100 Output Total 250 / 250 Balance 2807 / 2807 2810 / 2810 2780 / 2780 100 / 100 Weight 81.1 kg Narrative: GENERAL: AAOx3, no acute distress SKIN: Warm and dry. Large 2 part skin graft over the central scalp HEAD: Atruamtic, normocephalic. EYES: No scleral icterus. No injection or drainage. ENT: Moist mucous membranes, patent nares, no erythema of oropharynx. NECK: Supple, trachea midline. No JVD or lymphadenopathy. Normal thyroid. CARDIOVASCULAR: Regular rate and rhythm. No murmurs, gallops, or rubs. RESPIRATORY: Breath sounds clear equal bilaterally. No crackles or wheezes. No accessory muscle use. GASTROINTESTINAL: Abdomen soft, non-tender, nondistended, normal active bowel sounds MUSCULOSKELETAL: No cyanosis, or edema. NEURO: CN II-XII grossly intact, generalized weakness, imbalance, no slurring of speech Results Labs CBC & Chem 7: 09/19/18 06:41 09/19/18 06:41 Labs: Microbiology 09/17/18 04:15 Clean Catch Urine Urine Culture - Final Escherichia coli Assessment and Plan (1) Acute metabolic encephalopathy: Code(s): G93.41 - Metabolic encephalopathy Status: Acute (2) Status post craniotomy: Code(s): Z98.890 - Other specified postprocedural states Status: Acute (3) Squamous cell carcinoma: Code(s): C44.92 - Squamous cell carcinoma of skin, unspecified Status: Chronic (4) Hemiparesis of nondominant side: Code(s): G81.90 - Hemiplegia, unspecified affecting unspecified side Status: Acute (5) Dysphagia: Code(s): R13.10 - Dysphagia, unspecified Status: Acute (6) GERD (gastroesophageal reflux disease): Code(s): K21.9 - Gastro-esophageal reflux disease without esophagitis Status: Chronic (7) Impaired mobility and activities of daily living: Code(s): Z74.09 - Other reduced mobility Status: Acute (8) Presence of surgical incision: Code(s): Z78.9 - Other specified health status Status: Acute (9) Depression: Code(s): F32.9 - Major depressive disorder, single episode, unspecified Status: Chronic Plan Altered mental status Resolved following treatment for UTI Invasive squamous cell carcinoma s/p craniotomy Bulk of squamous cell carcinoma removed by Dr. vogt, small area remains of the right occipital lobe Surgery was else. She has follow-up with the surgeons Generalized weakness Patient is deconditioning following surgery for cancer She was admitted to [facility] and was performing well but became confused due to UTI UTI was treated and now she is returned to baseline Otalgia Resolved following duplex Patient appears injected on edge but no evidence of central infection Disposition Okay to discharge Progress Note: Quality VTE Deep Vein Thrombosis/Pulmonary Embolism Present on Admission: No _ (1) Dysphagia Qualifiers: Dysphagia type: unspecified Qualified Code(s): R13.10 - Dysphagia, unspecified (2) GERD (gastroesophageal reflux disease) Qualifiers: Esophagitis presence: esophagitis presence not specified Qualified Code(s): K21.9 - Gastro-esophageal reflux disease without esophagitis (3) Depression Qualifiers: Depression Type: unspecified Major depression recurrence: Active/Remission status: Major depression episode severity: Psychotic features: Trimester: Qualified Code(s): F32.9 - Major depressive disorder, single episode, unspecified
[2018-09-21] MEDS: Acetaminophen 325 MG Tablet PO PRN ×6 (00:04→23:02)
[2018-09-21] MEDS: Sod Chloride 0.9% Inj 1,000 ML IV.CONT SCH ×2 (05:33→15:17)
--- NOTE | 2018-09-21 07:58 | P.PNNEU ---
Subjective Active Medications: Active Medications Acetaminophen (Tylenol) 650 mg PO Q4H PRN PRN Reason: Temp > 100.4/pain 1-10 Last Admin: 09/21/18 05:39 Dose: 650 mg Al Hydroxide/Mg Hydroxide (Milk Of Magnesia Liq) 30 ml PO Q12H PRN PRN Reason: Mild Constipation Bisacodyl (Dulcolax Supp) 10 mg RECTAL DAILY PRN PRN Reason: SEVERE CONSITIPATION Carbamide Peroxide (Debrox 6.5% Otic Drops) 5 drops RIGHT EAR Q12HR [facility] Last Admin: 09/20/18 22:27 Dose: 5 drops Sodium Chloride (Ns Inj) 1,000 mls @ 75 mls/hr IV.CONT .[id number] [facility] Last Infusion: 09/21/18 07:00 Dose: Infused Ceftriaxone Sodium 1,000 mg/ (Sodium Chloride) 100 mls @ 200 mls/hr IV.SIG Q24H [facility] Last Infusion: 09/20/18 09:04 Dose: Infused Lactulose (Lactulose Liq) 30 ml PO DAILY PRN PRN Reason: SEVERE CONSITIPATION Neomycin/Polymyxin/Bacitracin (Neosporin Oint) 1 applicatio TOPICAL TID [facility] Last Admin: 09/20/18 17:36 Dose: 1 applicatio Ondansetron HCl (Zofran Inj) 4 mg IV.PUSH Q6H PRN PRN Reason: NAUSEA OR VOMITING Sennosides (Senokot) 17.2 mg PO Q12H PRN PRN Reason: Moderate Constipation Sodium Chloride (Ns Flush) 2 ml IV.FLUSH BID [facility] Last Admin: 09/20/18 22:28 Dose: Not Given Sodium Chloride (Ns Flush) 2 ml IV.FLUSH PRN PRN PRN Reason: FLUSH AFTER USING IV ACCESS Allergies/Adverse Reactions: Allergies Allergy/AdvReac Type Severity Reaction Status Date / Time chlorhexidine Allergy Intermediate Tingling Verified 09/09/18 13:05 codeine Allergy Intermediate Rash, Verified 09/09/18 13:05 Generalized Physical Exam Vital signs: Vital Signs 09/20/18 08:00 09/20/18 12:00 09/20/18 16:00 Temperature 98.2 F 98.2 F 98.3 F Pulse Rate 85 91 H 96 H Respiratory Rate 19 20 20 Blood Pressure 113/62 127/80 127/66 Pulse Oximetry 97 95 98 09/20/18 20:00 09/20/18 23:58 09/21/18 00:00 Temperature 97.5 F L 97.5 F L Pulse Rate 92 H 89 87 Respiratory Rate 17 18 Blood Pressure 128/67 124/76 Pulse Oximetry 96 97 09/21/18 04:00 Temperature 97.8 F Pulse Rate 85 Respiratory Rate 19 Blood Pressure 114/68 Pulse Oximetry 98 Intake & Output 09/20/18 09/21/18 09/21/18 18:59 06:59 18:59 Intake Total 1736 / 1736 600 / 600 864 / 864 Balance 1736 / 1736 600 / 600 864 / 864 Weight 81.1 kg Intake: IV 1236 / 1236 864 / 864 NS Inj 1,000 ML @ 75 mls/hr IV. 1136 / 1136 864 / 864 CONT .[id number] [facility] Rx#:[id number] Rocephin Inj 1,000 MG In NS Inj 100 / 100 100 ML @ 200 mls/hr IV.SIG Q24H [facility] Rx#:[id number] Oral 500 / 500 600 / 600 Other: # Voids 4 4 # Bowel Movements 1 Narrative: awake alert moves all well [facility] Review/Management - Review/Management Plan: im[p eeg neg afeb stable exam i would like to get mri she had mri at [facility] post op so should be ok if mri/a ok could dc to rehab by [place] 09/19/18 stable overnoc she c/o r ear ache med team plz look into ear with otoscope today mri still not done due to need hardware info from [facility] acc to mri this apparently is in progress and i asked nursing to call [facility] again today 09/21/18 mri still not done really stable neuro [place] at this point ok to transfer to rehab by me no more lethargy i will sign off call me if mri gets done
[2018-09-21] MEDS: Carbamide Peroxide 6.5% Otic Drops 15 ML Bottle RIGHT EAR SCH ×2 (09:13→22:32)
--- NOTE | 2018-09-21 14:11 | P.PNIM ---
Subjective Interval history: Patient is scheduled to transfer to [facility] today. Family requested 2 more home medications to be added to her med list, other than that patient has no new complaints and is optimistic about her recovery at [facility]. Physical Exam Vital signs: Last Vital Signs Temp 97.5 F L 09/21/18 12:00 Pulse 97 H 09/21/18 12:00 Resp 19 09/21/18 12:00 BP 121/70 09/21/18 12:00 Pulse Ox 98 09/21/18 12:00 Intake & Output 09/19/18 09/20/18 09/21/18 09/22/18 06:59 06:59 06:59 06:59 Intake Total 2810 / 2810 2780 / 2780 2336 / 2336 964 / 964 Balance 2810 / 2810 2780 / 2780 2336 / 2336 964 / 964 Weight 81.1 kg Narrative: GENERAL: AAOx3, eager to get to [facility] rehab SKIN: Warm and dry. Double skin graft on central scalp HEAD: Atruamtic, normocephalic. EYES: No scleral icterus. No injection or drainage. ENT: Moist mucous membranes, patent nares, no erythema of oropharynx. NECK: Supple, trachea midline. No JVD or lymphadenopathy. Normal thyroid. CARDIOVASCULAR: Regular rate and rhythm. No murmurs, gallops, or rubs. RESPIRATORY: Breath sounds clear equal bilaterally. No crackles or wheezes. No accessory muscle use. GASTROINTESTINAL: Abdomen soft, non-tender, nondistended, normal active bowel sounds MUSCULOSKELETAL: No cyanosis, or edema. NEURO: CN II-XII grossly intact, no focal deficits, no slurring of speech Results Labs CBC & Chem 7: 09/19/18 06:41 09/19/18 06:41 Assessment and Plan (1) Acute metabolic encephalopathy: Code(s): G93.41 - Metabolic encephalopathy Status: Acute (2) Status post craniotomy: Code(s): Z98.890 - Other specified postprocedural states Status: Acute (3) Squamous cell carcinoma: Code(s): C44.92 - Squamous cell carcinoma of skin, unspecified Status: Chronic (4) Hemiparesis of nondominant side: Code(s): G81.90 - Hemiplegia, unspecified affecting unspecified side Status: Acute (5) Dysphagia: Code(s): R13.10 - Dysphagia, unspecified Status: Acute (6) GERD (gastroesophageal reflux disease): Code(s): K21.9 - Gastro-esophageal reflux disease without esophagitis Status: Chronic (7) Impaired mobility and activities of daily living: Code(s): Z74.09 - Other reduced mobility Status: Acute (8) Presence of surgical incision: Code(s): Z78.9 - Other specified health status Status: Acute (9) Depression: Code(s): F32.9 - Major depressive disorder, single episode, unspecified Status: Chronic Plan Altered mental status Resolved following treatment for UTI Invasive squamous cell carcinoma s/p craniotomy Bulk of squamous cell carcinoma removed by Dr. vogt, small area remains of the right occipital lobe Surgery was else. She has follow-up with the surgeons Generalized weakness Patient is deconditioning following surgery for cancer She was admitted to [facility] and was performing well but became confused due to UTI UTI was treated and now she is returned to baseline Otalgia Resolved following debrox Disposition Discharged today to [facility] Progress Note: Quality VTE Deep Vein Thrombosis/Pulmonary Embolism Present on Admission: No _ (1) Dysphagia Qualifiers: Dysphagia type: unspecified Qualified Code(s): R13.10 - Dysphagia, unspecified (2) GERD (gastroesophageal reflux disease) Qualifiers: Esophagitis presence: esophagitis presence not specified Qualified Code(s): K21.9 - Gastro-esophageal reflux disease without esophagitis (3) Depression Qualifiers: Depression Type: unspecified Major depression recurrence: Active/Remission status: Major depression episode severity: Psychotic features: Trimester: Qualified Code(s): F32.9 - Major depressive disorder, single episode, unspecified
[2018-09-21] MEDS ORDERED: Gadobutrol PF 10 MMOL/10 ML Vial (for RAD) IV.SIG ONE (16:13)
--- NOTE | 2018-09-21 16:37 | MR ---
EXAM DATE: 09/21/2018 3:33 PM EST AGE/SEX: 63 years / Female INDICATIONS: Altered mental status. CLINICAL DATA: This is the patient's subsequent encounter. Patient reports that signs and symptoms h ave been present for 4 - 6 days and indicates a pain score of 0/10. MEDICAL/SURGICAL HISTORY: Gastroesophageal reflux disease. squamous cell cancer on head Tonsil lectomy. squamous cell removed from head, skull removed, knee surgery, shoulder surgery, sinus surger y COMPARISON: [facility] [place], MR HEAD W & W/O CONTRAST, 09/21/2018. . TECHNIQUE: 3D [id number] MRA was performed. Source images, multiplanar STS MIP, and 3D volum e MIP reconstructions were reviewed. FINDINGS: There is excellent visualization of the major intracranial arteries out to the second-order branch ve ssels. There is no evidence for aneurysm, vessel truncation or stenosis, and no evidence for vascula r malformation. There is a patent right posterior communicating artery which fills the right posterior cerebral vin ry. CONCLUSION: 1. Negative MRA Cow ([place]) non contrast. Electronically signed by: Daniel Ramirez MD Board Certified Radiologist 09/21/2018 3:43 PM EST
--- NOTE | 2018-09-21 16:40 | MR ---
EXAM DATE: 09/21/2018 4:02 PM EST AGE/SEX: 63 years / Female INDICATIONS: Altered mental status. CLINICAL DATA: This is the patient's subsequent encounter. Patient reports that signs and symptoms h ave been present for 4 - 6 days and indicates a pain score of 0/10. MEDICAL/SURGICAL HISTORY: Gastroesophageal reflux disease. squamous cell cancer Tonsillectomy. squamous cell removed from head, skull removed, knee surgery, shoulder surgery, sinus surgery COMPARISON: [facility], MRA HEAD W/O CONTRAST, 09/21/2018. . TECHNIQUE: MR cerebral venography is performed without and with 10 ml Gadavist (gadobutrol) contrast (single exam dose). Source images, 3D volume MIP, and sliding thin slab MIP reconstructions were re viewed. FINDINGS: The mid aspect of the superior sagittal sinus is not visualized but this is located directly adjacent to the titanium plate and scalp reconstruction. More anteriorly and posteriorly the sagittal sinus i s patent. The transverse, sigmoid and straight sinus appear patent. CONCLUSION: 1. The mid aspect of the superior sagittal sinus is not visualized. This is directly adjacent to the titanium plate and therefore could not be seen secondary to the adjacent plate or could have been re sected or alter during the interval surgery. 2. Remaining intracranial venous structures are within normal limits. Electronically signed by: Caleb Knox MD Board Certified Radiologist 09/21/2018 4:14 PM EST
--- NOTE | 2018-09-21 16:40 | MR ---
EXAM DATE: 09/21/2018 4:02 PM EST AGE/SEX: 63 years / Female INDICATIONS: Altered mental status. CLINICAL DATA: This is the patient's subsequent encounter. Patient reports that signs and symptoms h ave been present for 4 - 6 days and indicates a pain score of 0/10. MEDICAL/SURGICAL HISTORY: Gastroesophageal reflux disease. squamous cell cancer Tonsillectomy. squamous cell removed from head, skull removed, knee surgery, shoulder surgery, sinus surgery COMPARISON: [facility], CT HEAD W/O CONTRAST, 09/16/2018. . TECHNIQUE: Multiplanar, multisequence examination of the brain was performed without and with 10 ml G adavist (gadobutrol) contrast as a single exam dose. FINDINGS: Cerebrum: The ventricles are normal for age. No evidence of midline shift, mass lesion, hemorrhage or acute infarction. No extraaxial fluid collections are seen. The pituitary gland and suprasellar cistern are normal in configuration. White Matter: No significant signal abnormalities are seen in the white matter. Posterior Fossa: The cerebellum and brainstem are intact. The 4th ventricle is midline. The cerebel lopontine angle is unremarkable. The cerebellar tonsils are normal in position. Diffusion Imaging: No focal areas of restricted diffusion are seen. No evidence of acute infarction . Extracranial: The visualized portions of the orbits and paranasal sinuses are unremarkable. There is a large fat density scalp mass or possible postsurgical changes measuring 11.6 x 10.3 x 2.9 cm which results in erosive changes involving the parietal scalp. Post Contrast: No abnormal areas of parenchymal or dural enhancement. No evidence of blood-brain ba rrier breakdown. CONCLUSION: 1. No acute intracranial abnormality. 2. Large fat density scalp mass or possible postsurgical changes measuring 11.6 x 10.3 x 2.9 cm whic h results in erosive changes involving the parietal scalp. Electronically signed by: Daniel Ramirez MD Board Certified Radiologist 09/21/2018 4:13 PM EST
[2018-09-21 23:53] VITALS: RESP 19
[2018-09-22 04:58] VITALS: BP 111/71; PULSE 77; TEMP 97.6; O2SAT 95
[2018-09-22] MEDS: Sod Chloride 0.9% Inj 1,000 ML IV.CONT SCH (05:31)
[2018-09-22] MEDS: Acetaminophen 325 MG Tablet PO PRN ×3 (05:32→14:24)
--- NOTE | 2018-09-22 07:53 | P.PNNEU ---
Subjective Active Medications: Active Medications Acetaminophen (Tylenol) 650 mg PO Q4H PRN PRN Reason: Temp > 100.4/pain 1-10 Last Admin: 09/22/18 05:32 Dose: 650 mg Al Hydroxide/Mg Hydroxide (Milk Of Magnesia Liq) 30 ml PO Q12H PRN PRN Reason: Mild Constipation Bisacodyl (Dulcolax Supp) 10 mg RECTAL DAILY PRN PRN Reason: SEVERE CONSITIPATION Carbamide Peroxide (Debrox 6.5% Otic Drops) 5 drops RIGHT EAR Q12HR [facility] Last Admin: 09/21/18 22:32 Dose: Not Given Sodium Chloride (Ns Inj) 1,000 mls @ 75 mls/hr IV.CONT .[id number] [facility] Last Admin: 09/22/18 05:31 Dose: 75 mls/hr Ceftriaxone Sodium 1,000 mg/ (Sodium Chloride) 100 mls @ 200 mls/hr IV.SIG Q24H [facility] Last Infusion: 09/21/18 09:58 Dose: Infused Lactulose (Lactulose Liq) 30 ml PO DAILY PRN PRN Reason: SEVERE CONSITIPATION Neomycin/Polymyxin/Bacitracin (Neosporin Oint) 1 applicatio TOPICAL TID [facility] Last Admin: 09/21/18 17:07 Dose: 1 applicatio Ondansetron HCl (Zofran Inj) 4 mg IV.PUSH Q6H PRN PRN Reason: NAUSEA OR VOMITING Sennosides (Senokot) 17.2 mg PO Q12H PRN PRN Reason: Moderate Constipation Sodium Chloride (Ns Flush) 2 ml IV.FLUSH BID [facility] Last Admin: 09/21/18 22:32 Dose: Not Given Sodium Chloride (Ns Flush) 2 ml IV.FLUSH PRN PRN PRN Reason: FLUSH AFTER USING IV ACCESS Allergies/Adverse Reactions: Allergies Allergy/AdvReac Type Severity Reaction Status Date / Time chlorhexidine Allergy Intermediate Tingling Verified 09/09/18 13:05 codeine Allergy Intermediate Rash, Verified 09/09/18 13:05 Generalized Physical Exam Vital signs: Vital Signs 09/21/18 08:00 09/21/18 12:00 09/21/18 16:00 Temperature 97.5 F L 97.5 F L 97.1 F L Pulse Rate 88 97 H 108 H Respiratory Rate 19 20 Blood Pressure 126/74 121/70 140/84 Pulse Oximetry 100 98 95 09/21/18 20:00 09/21/18 23:52 09/22/18 00:00 Temperature 97.6 F 97.5 F L Pulse Rate 84 94 H 88 Respiratory Rate 20 19 Blood Pressure 106/65 128/70 Pulse Oximetry 94 L 97 09/22/18 04:00 Temperature 97.6 F Pulse Rate 77 Respiratory Rate 19 Blood Pressure 111/71 Pulse Oximetry 95 Intake & Output 09/21/18 09/22/18 09/22/18 18:59 06:59 18:59 Intake Total 1664 / 1664 1480 / 1480 Balance 1664 / 1664 1480 / 1480 Weight 81.1 kg Intake: IV 964 / 964 1000 / 1000 NS Inj 1,000 ML @ 75 mls/hr IV. 864 / 864 1000 / 1000 CONT .[id number] [facility] Rx#:[id number] Rocephin Inj 1,000 MG In NS Inj 100 / 100 100 ML @ 200 mls/hr IV.SIG Q24H [facility] Rx#:[id number] Oral 700 / 700 480 / 480 Other: # Voids 3 Date of Last Bowel Movement 09/20/18 # Bowel Movements 1 Narrative: awake vff moves all well Review/Management - Review/Management Plan: im[p eeg neg afeb stable exam i would like to get mri she had mri at [facility] post op so should be ok if mri/a ok could dc to rehab by pa 09/19/18 stable overnoc she c/o r ear ache med team plz look into ear with otoscope today mri still not done due to need hardware info from [facility] acc to mri this apparently is in progress and i asked nursing to call [facility] again today 09/21/18 mri still not done really stable neuro [place] at this point ok to transfer to rehab by me no more lethargy i will sign off call me if mri gets done -*- 09/22/18 i reviewed mris mra nl mrv the sss fills well posteriorly and some other accessory veins draining well the mri shows mass at vertex ow looks nl ok to rehab will sign off
[2018-09-22] MEDS: Carbamide Peroxide 6.5% Otic Drops 15 ML Bottle RIGHT EAR SCH (08:08)
--- NOTE | 2018-09-22 15:23 | P.PNIM ---
Subjective Interval history: Patient is awake, active, complains of visual changes that have occurred over the last couple months. Neurology ordered extensive brain imaging of the venous and arterial circulation, both reports were within normal limits. MRI of the brain was within normal limits. The visual changes are more likely ophthalmologic and she is requesting a follow-up with an eye doctor following her discharge to [facility]. Physical Exam Vital signs: Last Vital Signs Temp 97.6 F 09/22/18 04:00 Pulse 77 09/22/18 04:00 Resp 19 09/22/18 04:00 BP 111/71 09/22/18 04:00 Pulse Ox 95 09/22/18 04:00 Intake & Output 09/20/18 09/21/18 09/22/18 09/23/18 06:59 06:59 06:59 06:59 Intake Total 2780 / 2780 2336 / 2336 3144 / 3144 100 / 100 Balance 2780 / 2780 2336 / 2336 3144 / 3144 100 / 100 Weight 81.1 kg 81.1 kg Narrative: GENERAL: AAOx3, eager to get to [facility] SKIN: Warm and dry. Double skin graft on central scalp HEAD: Atruamtic, normocephalic. EYES: No scleral icterus. No injection or drainage. ENT: Moist mucous membranes, patent nares, no erythema of oropharynx. NECK: Supple, trachea midline. No JVD or lymphadenopathy. Normal thyroid. CARDIOVASCULAR: Regular rate and rhythm. No murmurs, gallops, or rubs. RESPIRATORY: Breath sounds clear equal bilaterally. No crackles or wheezes. No accessory muscle use. GASTROINTESTINAL: Abdomen soft, non-tender, nondistended, normal active bowel sounds MUSCULOSKELETAL: No cyanosis, or edema. NEURO: CN II-XII grossly intact, no focal deficits, no slurring of speech Results Labs CBC & Chem 7: 09/19/18 06:41 09/19/18 06:41 Imaging Imaging: Impressions Head MRI 09/21/18 00:00 CONCLUSION: 1. No acute intracranial abnormality. 2. Large fat density scalp mass or possible postsurgical changes measuring 11.6 x 10.3 x 2.9 cm which results in erosive changes involving the parietal scalp. Head MRA 09/21/18 00:00 CONCLUSION: 1. Negative MRA Cow ([place]) non contrast. Head/Brain Mag Res Venography 09/21/18 00:00 CONCLUSION: 1. The mid aspect of the superior sagittal sinus is not visualized. This is directly adjacent to the titanium plate and therefore could not be seen secondary to the adjacent plate or could have been resected or alter during the interval surgery. 2. Remaining intracranial venous structures are within normal limits. Assessment and Plan (1) Acute metabolic encephalopathy: Code(s): G93.41 - Metabolic encephalopathy Status: Acute (2) Status post craniotomy: Code(s): Z98.890 - Other specified postprocedural states Status: Acute (3) Squamous cell carcinoma: Code(s): C44.92 - Squamous cell carcinoma of skin, unspecified Status: Chronic (4) Hemiparesis of nondominant side: Code(s): G81.90 - Hemiplegia, unspecified affecting unspecified side Status: Acute (5) Dysphagia: Code(s): R13.10 - Dysphagia, unspecified Status: Acute (6) GERD (gastroesophageal reflux disease): Code(s): K21.9 - Gastro-esophageal reflux disease without esophagitis Status: Chronic (7) Impaired mobility and activities of daily living: Code(s): Z74.09 - Other reduced mobility Status: Acute (8) Presence of surgical incision: Code(s): Z78.9 - Other specified health status Status: Acute (9) Depression: Code(s): F32.9 - Major depressive disorder, single episode, unspecified Status: Chronic Plan Altered mental status Resolved following treatment for UTI Invasive squamous cell carcinoma s/p craniotomy Bulk of squamous cell carcinoma removed by Dr. vogt, small area remains of the right occipital lobe Surgery was else. She has follow-up with the surgeons Generalized weakness Patient is deconditioning following surgery for cancer She was admitted to [facility] and was performing well but became confused due to UTI UTI was treated and now she is returned to baseline Otalgia Resolved following debrox Disposition Discharged today to [facility], report already called Progress Note: Quality VTE Deep Vein Thrombosis/Pulmonary Embolism Present on Admission: No _ (1) Dysphagia Qualifiers: Dysphagia type: unspecified Qualified Code(s): R13.10 - Dysphagia, unspecified (2) GERD (gastroesophageal reflux disease) Qualifiers: Esophagitis presence: esophagitis presence not specified Qualified Code(s): K21.9 - Gastro-esophageal reflux disease without esophagitis (3) Depression Qualifiers: Depression Type: unspecified Major depression recurrence: Active/Remission status: Major depression episode severity: Psychotic features: Trimester: Qualified Code(s): F32.9 - Major depressive disorder, single episode, unspecified
== END 2018-09-22 16:41 ==
LOC: N07 16:48
PROVIDERS: ADMIT Family Medicine; ATTEND Family Medicine
DX: K58.9 Irritable bowel syndrome, unspecified; K21.9 Gastro-esophageal reflux disease without esophagitis; M79.7 Fibromyalgia; I69.354 Hemiplegia and hemiparesis following cerebral infarction affecting left non-dominant side; G93.41 Metabolic encephalopathy; F32.9 Major depressive disorder, single episode, unspecified; D64.9 Anemia, unspecified; Z85.828 Personal history of other malignant neoplasm of skin; H92.01 Otalgia, right ear; Z93.1 Gastrostomy status; N39.0 Urinary tract infection, site not specified; T81.30XA Disruption of wound, unspecified, initial encounter; Z87.891 Personal history of nicotine dependence; F41.9 Anxiety disorder, unspecified; R13.10 Dysphagia, unspecified